=== PATIENT | male | born 1960 | race Hispanic/Latino ===

== ENCOUNTER 2017-11-08 12:24 | Outpatient (CLI) | payer BC ==
--- NOTE | 2017-11-08 12:53 | XRay Report ---
XRAY LUMBAR SPINE THREE VIEWS: 11/08/17 12:24:00 CLINICAL: Back pain. FINDINGS: Normal vertebral body height, alignment and disk spaces. Small anterior osteophytes at multiple levels and larger lateral osteophytes at multiple levels. The largest osteophytes are lateral osteophytes at L2-3. No pars defect. The pedicles are intact. No fracture. Normal soft tissues. IMPRESSION: Moderate degenerative change.
== END 2017-11-08 12:25 | disposition home or self-care (01) ==
LOC: SPVIMAG 12:24
PROVIDERS: ATTEND Internal Medicine
DX: M47.897 Other spondylosis, lumbosacral region (principal)
CPT/HCPCS: 72100